=== PATIENT | male | born 1975 | race African-American/Black ===

== ENCOUNTER 2016-04-20 13:16 | Emergency (ER) | payer OTHER ==
[~2016-04-20] VITALS: Ht 177.8 cm; Wt 113.4 kg
[~2016-04-20 13:16] MED LIST: HYDROCHLOROTHIA25 M1 PO; PERCOCET 5-3251 EACH PO
--- NOTE | 2016-04-20 14:10 | ED GENERAL ADULT ---
History of Present Illness General Chief Complaint: General Adult Stated Complaint: ELAVATED BP Source: patient Exam Limitations: no limitations Vital Signs & Intake/Output Vital Signs & Intake/Output Vital Signs Date Time Temp Pulse Resp B/P Pulse O2 O2 Flow FiO2 Ox Delivery Rate 04/20 1653 160/80 04/20 1624 202/122 04/20 1600 99.0 103 20 198/116 04/20 1555 198/116 04/20 1516 103 20 200/110 97 Room Air 04/20 1436 99.0 97 20 198/122 04/20 1418 198/122 04/20 1324 99.0 97 20 196/135 97 Room Air Allergies Coded Allergies: ibuprofen (From MOTRIN) (Intermediate, HIVES 08/13/15) Reconcile Medications Albuterol Sulfate (Proair Hfa) 90 MCG HFA.AER.AD 2 PUF INH Q4-6 PRN PRN SHORTNESS OF BREATH (Reported) Ciprofloxacin HCl/Dexameth (Ciprodex Otic Suspension) 0.3 %-0.1 % DROPS.SUSP 4 GTT OT BID otitis externa use for 10 days Hydrochlorothiazide 25 MG TABLET 1 TAB PO DAILY BP (Reported) Labetalol HCl 100 MG TABLET 1 TAB PO BID hypertension Oxycodone HCl/Acetaminophen (Percocet 5-325 MG Tablet) 5 MG-325 MG TABLET 1 TAB PO Q6H PRN PAIN Triage Note: WENT TO WALK IN CLINIC FOR EAR INFECTION AND SENT HERE FOR BP OF 209/180. PT STATES + H/A. PT TAKES HCTZ FOR BP AND TOOK MED TODAY Triage Nurses Notes Reviewed? yes HPI: Patient is a 41 year old male presents for evaluation of elevated blood pressure. Patient was at an urgent care clinic for evaluation of right ear pain and they obtained a blood pressure of 209/180. Patient takes hydrochlorothiazide for his blood pressure, has been compliant with his medication regimen. Headache and ear pain since yesterday. Patient also noted drainage from his right ear over the past 24 hours. Patient took Benadryl yesterday evening to help him sleep with minimal improvement. Patient has not taken any medication for his pain. Headache and ear pain is currently severe. Patient denies blurred vision, chest pain, dyspnea nausea, vomiting, fevers, chills. (MICHAEL COHEN,ASHKAN) Past History Travel History Traveled to [place] past 21 day No Medical History Any Pertinent Medical History? see below for history Neurological: NONE EENT: NONE Cardiovascular: hypertension Respiratory: asthma Gastrointestinal: NONE Hepatic: NONE Renal: NONE Musculoskeletal: NECK LYPOMA Psychiatric: NONE Endocrine: NONE Surgical History Surgical History: non-contributory Psychosocial History What is your primary language Cambodian Tobacco Use: Current Daily Use Daily Tobacco Use Amount/Type: => 5 Cigarettes daily ETOH Use: occasional use Illicit Drug Use: denies illicit drug use Family History Hx Contributory? No (ASHKAN TYSON) Review of Systems Review of Systems Constitutional: Denies: chills, fever. EENTM: Reports: ear pain, nasal congestion. Denies: blurred vision, visual changes. Respiratory: Denies: cough, short of breath. Cardiovascular: Denies: chest pain, peripheral edema, syncope. GI: Denies: abdominal pain, nausea, vomiting. Genitourinary: Reports: no symptoms. Musculoskeletal: Reports: no symptoms. Skin: Reports: no symptoms. Neurological/Psychological: Reports: headache. Denies: numbness. Hematologic/Endocrine: Denies: bruising, bleeding. Immunologic/Allergic: Denies: splenectomy. (ASHKAN TYSON) Physical Exam Physical Exam General Appearance: well developed/nourished, alert, awake Head: atraumatic, normal appearance Eyes: Bilateral: normal appearance, PERRL, EOMI, other (grossly normal fundoscope exam ). Ears, Nose, Throat: inflammation of the right EAC. Right tragus tenderness Neck: normal inspection, supple, full range of motion Respiratory: normal breath sounds, chest non-tender, no respiratory distress, lungs clear Cardiovascular: regular rate/rhythm (no appreciable murmur) Gastrointestinal: soft, non-tender Back: normal inspection, normal range of motion Extremities: normal inspection, normal capillary refill, normal range of motion, no edema Neurologic/Psych: no motor/sensory deficits, awake, alert, oriented x 3, normal gait, radiosonde specialist II-XII nml as tested Skin: intact, normal color, warm/dry Lymphatic: no anterior cervical oriana Core Measures ACS in differential dx? Yes ASA ordered for poss ACS? No-ACS ruled out CVA/TIA Diagnosis: No Severe Sepsis Present: No Septic Shock Present: No (ASHKAN TYSON) Progress Differential Diagnoses I considered the following diagnoses in my evaluation of the patient: Sinusitis, otitis media, otitis externa, intracranial bleed, intracranial infection, hypertensive urgency, hypertensive crisis Plan of Care: Orders Procedure Date/time Status Telemetry/Warehouse Representative 04/20 1422 Active TROPONIN LEVEL 04/20 1422 Complete COMPREHENSIVE METABOLIC PANEL 04/20 1422 Complete CBC WITHOUT DIFFERENTIAL 04/20 1422 Complete EKG 04/20 140 Active Laboratory Tests 04/20/16 1425: Anion Gap 10, Estimated GFR > 60, BUN/Creatinine Ratio 7.5, Glucose 111 H, Calcium 9.2, Total Bilirubin 0.5, AST 24, ALT 39, Alkaline Phosphatase 90, Troponin I < 0.01, Total Protein 7.7, Albumin 4.2, Globulin 3.5, Albumin/ Globulin Ratio 1.2, CBC w Diff NO MAN DIFF REQ, RBC 5.78, MCV 78.8 L, MCH 26.2 L, RDW 13.9, MPV 7.6, Gran % 73.0, Lymphocytes % 20.7, Monocytes % 4.1, Eosinophils % 2.0, Basophils % 0.2, Absolute Granulocytes 8.9 H, Absolute Lymphocytes 2.5, Absolute Monocytes 0.5, Absolute Eosinophils 0.2, Absolute Basophils 0, PUBS MCHC 33.3 04/20/2016 4:28:20 PM: Patient's blood pressure did not significantly improve after amlodipine. IV labetalol ordered. Discussed with Dr. Talavera, EKG and labs reviewed: If blood pressure improves to less than 200/100 then can discharge home on additional PO medication. Blood pressure improving. No acute findings of end organ dysfunction on labs or exam. Appears stable for discharge with close outpatient follow up. (MICHAEL COHEN,ASHKAN) Diagnostic Imaging: Viewed by Me: CT Scan. Discussed w/RAD: CT Scan. Radiology Impression: PATIENT: KAYLAN VÁZQUEZ PRESENT AGE: 41 PATIENT ACCOUNT NO: [id number] : 76 LOCATION: [facility] ORDERING PHYSICIAN: ASHKAN COHEN SERVICE DATE: 04/20/16-1422 EXAM TYPE: CAT - CT HEAD WO IV CONTRAST EXAMINATION: CT HEAD WITHOUT CONTRAST CLINICAL INFORMATION: Headache, hypertension COMPARISON: None TECHNIQUE: Contiguous axial imaging was performed from the skull base to vertex without intravenous administration of contrast. DLP: 672 mGy-cm FINDINGS: There is no evidence of acute intracranial hemorrhage or territorial infarction. No abnormal mass effect or midline shift is seen. Paredes to white matter differentiation is well preserved. No extra-axial fluid collections are identified. The ventricles are normal in size. There is no abnormal attenuation within the brain parenchyma. The osseous structures and soft tissues are normal. Partial opacification of the right ethmoid sinuses. IMPRESSION: No acute intracranial pathology. Partial opacification of the right ethmoid sinus. DICTATED BY: ESTELLE BRAN MD DATE/TIME DICTATED:04/20/161516 BEAN WEIGHER:JANICE DATE/TIME TRANSCRIBED:04/20/161516 CONFIDENTIAL, DO NOT COPY WITHOUT APPROPRIATE AUTHORIZATION. <Electronically signed in Other Vendor System> SIGNED BY: ESTELLE BRAN MD 04/20/16 1523 Initial ED EKG: normal axis, normal intervals, normal p-waves, normal QRS complex, normal sinus rhythm, no ST T wave changes (ASHKAN TYSON) Departure Departure Time of Disposition: 1654 Disposition: HOME OR SELF CARE Condition: Stable Clinical Impression Primary Impression: Otitis externa Qualifiers: Otitis externa type: unspecified type Laterality: right Chronicity: acute Qualified Code: H60.501 - Unspecified acute noninfective otitis externa, right ear Secondary Impressions: Hypertension Qualifiers: Hypertension type: essential hypertension Qualified Code: I10 - Essential (primary) hypertension Referrals: SERGEY SHEEHAN,ANN MARIE Blair (PCP/Family) Additional Instructions: Follow up with your primary doctor this week for further evaluation. Call in the morning for appointment. Return to the emergency department if he developed chest pain, difficulty breathing, change in vision, numbness, weakness, or worsening of symptoms. Departure Forms: Customer Survey General Discharge Information Prescriptions: Current Visit Scripts Oxycodone HCl/Acetaminophen (Percocet 5-325 MG Tablet) 1 TAB PO Q6H PRN PAIN #10 TAB Ciprofloxacin HCl/Dexameth (Ciprodex Otic Suspension) 4 GTT OT BID #1 BOT use for 10 days Labetalol HCl 1 TAB PO BID #60 TAB (ASHKAN TYSON) PA/INDUSTRIAL RETROFIT DESIGNER Co-Sign Statement Statement: ED Attending supervision documentation- [] I saw and evaluated the patient. I have also reviewed all the pertinent lab results and diagnostic results. I agree with the findings and the plan of care as documented in the PA's/INDUSTRIAL RETROFIT DESIGNER's documentation. [x] I have reviewed the ED Record and agree with the PA's/INDUSTRIAL RETROFIT DESIGNER's documentation. [] Additions or exceptions (if any) to the PAs/INDUSTRIAL RETROFIT DESIGNER's note and plan are summarized below: [] (SHANA TALAVERA DO) Critical Care Note Critical Care Note Critical Care Time: non-applicable (MICHAEL COHEN,ASHKAN)
[2016-04-20] MEDS ORDERED: PROAIR HFA8.5 GM INH (14:33)
[2016-04-20 14:39] LABS: ABSOLUTE BASOPHIL COUNT 0 /CUMM (0.0-0.2); ABSOLUTE EOSINOPHIL COUNT 0.2 /CUMM (0.0-0.7); ABSOLUTE GRANULOCYTE CT 8.9 /CUMM (1.4-6.5); ABSOLUTE LYMPH COUNT 2.5 /CUMM (1.2-3.4); ABSOLUTE MONOCYTE COUNT 0.5 /CUMM (0.10-0.60); BASOPHIL % 0.2 % (0.0-2.0); HEMATOCRIT 45.6 % (42-52); MEAN CORPUSCULAR HGB 26.2 PG (27.0-31.0); MEAN CORPUSCULAR HGB CONC 33.3 G/DL (33.0-37.0); MEAN CORPUSCULAR VOLUME 78.8 FL (80.0-94.0); MEAN PLATELET VOLUME 7.6 FL (7.4-10.4); PLATELET COUNT 346 /CUMM (130-400); RBC DISTRIBUTION WIDTH 13.9 % (11.5-14.5); RED BLOOD CELL CT 5.78 /CUMM (4.70-6.10); WHITE BLOOD CELL COUNT 12.2 /CUMM (4.8-10.8)
--- NOTE | 2016-04-20 15:23 | CT SCAN REPORT ---
EXAMINATION: CT HEAD WITHOUT CONTRAST CLINICAL INFORMATION: Headache, hypertension COMPARISON: None TECHNIQUE: Contiguous axial imaging was performed from the skull base to vertex without intravenous administration of contrast. DLP: 672 mGy-cm FINDINGS: There is no evidence of acute intracranial hemorrhage or territorial infarction. No abnormal mass effect or midline shift is seen. Paredes to white matter differentiation is well preserved. No extra-axial fluid collections are identified. The ventricles are normal in size. There is no abnormal attenuation within the brain parenchyma. The osseous structures and soft tissues are normal. Partial opacification of the right ethmoid sinuses. IMPRESSION: No acute intracranial pathology. Partial opacification of the right ethmoid sinus.
[2016-04-20 16:53] VITALS: BP 160/80
[2016-04-20] MEDS ORDERED: CIPRODEX OTIC7.5 ML OT (16:56)
[2016-04-20] MEDS ORDERED: PERCOCET 5-3251 EACH PO (16:56)
[2016-04-20] MEDS ORDERED: LABETALOL HCL100 M1 PO (16:56)
== END 2016-04-20 17:02 ==
LOC: ERH 13:16
PROVIDERS: Physician Assistant
DX: H60.91 Unspecified otitis externa, right ear (principal); Z72.0 Tobacco use; I10 Essential (primary) hypertension; R51 Headache
CPT/HCPCS: 93005; 93010; 96374; 96375; 96376

== ENCOUNTER 2017-10-07 21:33 | Emergency (ER) | payer OTHER ==
[~2017-10-07] VITALS: Ht 177.8 cm; Wt 98.0 kg
[~2017-10-07 21:33] MED LIST changes: +CIPRODEX OTIC7.5 ML OT; +LABETALOL HCL100 M1 PO; +NORVASC10 M1 PO; +PROAIR HFA8.5 GM INH
[2017-10-07 22:42] LABS: ABSOLUTE BASOPHIL COUNT 0 /CUMM (0.0-0.2); ABSOLUTE EOSINOPHIL COUNT 0.4 /CUMM (0.0-0.7); ABSOLUTE GRANULOCYTE CT 5.1 /CUMM (1.4-6.5); ABSOLUTE LYMPH COUNT 2.7 /CUMM (1.2-3.4); ABSOLUTE MONOCYTE COUNT 0.5 /CUMM (0.10-0.60); BASOPHIL % 0.4 % (0.0-2.0); EOSINOPHIL % 4.2 % (0-5); GRANULOCYTE % 59.2 % (42.2-75.2); HEMATOCRIT 38.9 % (42-52); MEAN CORPUSCULAR HGB 26.9 PG (27.0-31.0); MEAN CORPUSCULAR HGB CONC 33.1 G/DL (33.0-37.0); MEAN CORPUSCULAR VOLUME 81.1 FL (80.0-94.0); MEAN PLATELET VOLUME 7.3 FL (7.4-10.4); PLATELET COUNT 362 /CUMM (130-400); RBC DISTRIBUTION WIDTH 15.2 % (11.5-14.5); WHITE BLOOD CELL COUNT 8.6 /CUMM (4.8-10.8)
[2017-10-07 23:30] VITALS: BP 135/75
--- NOTE | 2017-10-07 23:36 | RADIOLOGY REPORT ---
EXAMINATION: XR PORTABLE CHEST CLINICAL INFORMATION: Chest pain COMPARISON: 08/04/2017 TECHNIQUE: Portable frontal view of the chest was obtained. FINDINGS: The lungs are well expanded. There is no focal consolidation, edema, or effusion. No pneumothorax. The cardiomediastinal silhouette is within normal limits. No acute osseous abnormality. IMPRESSION: No acute pulmonary findings.
--- NOTE | 2017-10-08 00:01 | ED GENERAL ADULT ---
History of Present Illness General Chief Complaint: General Adult Stated Complaint: "PAIN UP AND DOWN LT ARM" Source: patient Exam Limitations: no limitations Vital Signs & Intake/Output Vital Signs & Intake/Output Vital Signs Date Time Temp Pulse Resp B/P B/P Pulse O2 O2 Flow FiO2 Mean Ox Delivery Rate 10/07 2330 98.1 88 18 135/75 98 Room Air 10/07 2301 Room Air 10/07 2144 96.8 88 20 155/103 98 Room Air ED Intake and Output 10/08 0000 10/07 1200 Intake Total Output Total Balance Patient 216 lb Weight Weight Reported by Patient Measurement Method Allergies Coded Allergies: ibuprofen (From MOTRIN) (Intermediate, HIVES 08/03/17) Reconcile Medications Albuterol Sulfate (Proair Hfa) 90 MCG HFA.AER.AD 2 PUF INH Q4-6 PRN PRN SHORTNESS OF BREATH (Reported) Amlodipine Besylate (Norvasc) 10 MG TABLET 1 TAB PO DAILY HIGH BLOOD PRESSURE Hydrochlorothiazide 25 MG TABLET 1 TAB PO DAILY BP Triage Note: PT HERE WITH C/O RIGHT ARM PAIN THAT BEGAN TODAY. PT DENIES TRAUMA TO AFFECTED AREA. PT REPORTS " IT FEELS CONSTRICTED". +CMS+PULSES TO AREA. Triage Nurses Notes Reviewed? yes Onset: Abrupt Duration: hour(s): (2) Timing: single episode today Injury Environment: home Severity: mild, moderate Severity Numbers: 5 No Modifying Factors: none Modifying Factors: Worsens With: movement. HPI: 42-year-old male history of hypertension presented for evaluation of pain in his right arm. Patient states 2 hours prior to arrival he developed pain located mostly in the the right bicep area. The pain started while he was at rest. He reports associated numbness and tingling in the right forearm. There is no trauma or triggering event is never had this before no chest pain or shortness of breath. Since the symptoms first started his pain has improved currently as a 5 out of 10. The pain is worse with movement or touching the area. No recent surgery recent IV access to that arm. No history of DVT. No sweats or chills nausea or vomiting. He is not taking any medicine for the pain. No swelling or redness no fever. (Augusto Salmon) Past History Travel History Traveled to [place] past 21 day No Medical History Any Pertinent Medical History? see below for history Neurological: NONE EENT: NONE Cardiovascular: hypertension Respiratory: asthma Gastrointestinal: NONE Hepatic: NONE Renal: NONE Musculoskeletal: NECK LYPOMA Psychiatric: NONE Endocrine: NONE Blood Disorders: NONE Cancer(s): NONE CRM CAMPAIGN MANAGER/Reproductive: NONE Surgical History Surgical History: non-contributory Psychosocial History What is your primary language Amharic Tobacco Use: Current Daily Use Daily Tobacco Use Amount/Type: => 5 Cigarettes daily ETOH Use: denies use Illicit Drug Use: denies illicit drug use Family History Hx Contributory? No (Augusto Salmon) Review of Systems Review of Systems Constitutional: Reports: no symptoms. EENTM: Reports: no symptoms. Respiratory: Reports: no symptoms. Cardiovascular: Reports: no symptoms. GI: Reports: no symptoms. Genitourinary: Reports: no symptoms. Musculoskeletal: Reports: joint pain, muscle pain, muscle stiffness. Skin: Reports: no symptoms. Neurological/Psychological: Reports: numbness, tingling. Hematologic/Endocrine: Reports: no symptoms. Immunologic/Allergic: Reports: no symptoms. All Other Systems: Reviewed and Negative (Augusto Salmon) Physical Exam Physical Exam General Appearance: well developed/nourished, no apparent distress, alert, awake Head: atraumatic, normal appearance Eyes: Bilateral: normal appearance, EOMI. Ears, Nose, Throat: hearing grossly normal Neck: normal inspection, supple, full range of motion Respiratory: normal breath sounds, chest non-tender, no respiratory distress, lungs clear Cardiovascular: regular rate/rhythm, normal peripheral pulses Peripheral Pulses: 2+ brachial (R), 2+ brachial (L), 2+ radial (R), 2+ radial (L) Gastrointestinal: soft, non-tender Back: normal inspection, normal range of motion Extremities: normal inspection, normal range of motion, no edema, Scalp laceration there is a 1 cm linear superficial laceration, abrasion there is mild tenderness to palpation in the area of the right bicep. No bruising swelling or abrasions. No erythema. Brachial and radial pulses 2+ Neurologic/Psych: no motor/sensory deficits, awake, alert, oriented x 3, normal gait, normal mood/affect Skin: intact, normal color, warm/dry Lymphatic: no anterior cervical oriana Core Measures ACS in differential dx? No CVA/TIA Diagnosis: No Sepsis Present: No Sepsis Focused Exam Completed? No (Augusto Salmon) Progress Differential Diagnoses I considered the following diagnoses in my evaluation of the patient: [Muscle strain, tendinitis, tendon rupture, acute coronary syndrome, cubital tunnel syndrome, carpal tunnel syndrome, brachial plexus injury, cervical radiculopathy , dvt] Plan of Care: Orders Procedure Date/time Status TROPONIN LEVEL 10/07 2224 Complete COMPREHENSIVE METABOLIC PANEL 10/07 2224 Complete CBC WITHOUT DIFFERENTIAL 10/07 2224 Complete EKG 10/07 2145 Active Laboratory Tests 10/07/172231: Anion Gap 6, Estimated GFR > 60, BUN/Creatinine Ratio 10.0, Glucose 107 H, Calcium 9.1, Total Bilirubin 0.3, AST 24, ALT 41, Alkaline Phosphatase 80, Troponin I < 0.01, Total Protein 7.0, Albumin 3.7, Globulin 3.3, Albumin/ Globulin Ratio 1.1, CBC w Diff NO MAN DIFF REQ, RBC 4.80, MCV 81.1, MCH 26.9 L, MCHC 33.1, RDW 15.2 H, MPV 7.3 L, Gran % 59.2, Lymphocytes % 30.9, Monocytes % 5.3, Eosinophils % 4.2, Basophils % 0.4, Absolute Granulocytes 5.1, Absolute Lymphocytes 2.7, Absolute Monocytes 0.5, Absolute Eosinophils 0.4, Absolute Basophils 0 Patient is here for evaluation of acute onset pain to his right bicep area. On exam there is no gross deformity bruising swelling abrasions or erythema. Neurovascular supplies intact. There was no trauma or triggering events. He has no chest pain or shortness of breath. The pain is improved since first starting. Patient is hypertensive. Labs EKG chest x-ray ordered. Patient walked out of the emergency department before his evaluation was complete. IT Is unclear why he did this. Patient was alert and oriented 3. Blood work chest x-ray was unremarkable. Attempted to call patient multiple times but he did not answer. Diagnostic Imaging: Viewed by Me: Radiology Read. Discussed w/RAD: Radiology Read. Radiology Impression: PATIENT: KAYLAN VÁZQUEZ PRESENT AGE: 42 PATIENT ACCOUNT NO: [id number] : 76 LOCATION: [facility] ORDERING PHYSICIAN: Augusto COHEN SERVICE DATE: 10/07/17 EXAM TYPE: RAD - XRY- PORTABLE CHEST XRAY EXAMINATION: XR PORTABLE CHEST CLINICAL INFORMATION: Chest pain COMPARISON: 08/04/2017 TECHNIQUE: Portable frontal view of the chest was obtained. FINDINGS: The lungs are well expanded. There is no focal consolidation , edema, or effusion. No pneumothorax. The cardiomediastinal silhouette is within normal limits. No acute osseous abnormality. IMPRESSION: No acute pulmonary findings. DICTATED BY: Stevie Nicole MD DATE/TIME DICTATED:2331 HAT DESIGNER:JANICE DATE/TIME TRANSCRIBED:10/07/172331 CONFIDENTIAL, DO NOT COPY WITHOUT APPROPRIATE AUTHORIZATION. <Electronically signed in Other Vendor System> SIGNED BY: Bonnie SHEEHAN,Stevie 10/07/172335 Initial ED EKG: normal sinus rhythm, nonspecific ST T wave chg (Augusto Salmon) Departure Departure Disposition: LEFT AGAINST MEDICAL ADVICE Condition: Stable Clinical Impression Primary Impression: Right arm pain Referrals: Abbey SHEEHAN,Gloria Blair (PCP/Family) Departure Forms: Customer Survey General Discharge Information (Augusto Salmon) PA/OPERATIONAL ASSISTANT Co-Sign Statement Statement: ED Attending supervision documentation- I saw and evaluated the patient. I have also reviewed all the pertinent lab results and diagnostic results. I agree with the findings and the plan of care as documented in the PA's/OPERATIONAL ASSISTANT's documentation. x I have reviewed the ED Record and agree with the PA's/OPERATIONAL ASSISTANT's documentation. [] Additions or exceptions (if any) to the PAs/OPERATIONAL ASSISTANT's note and plan are summarized below: [] (Praveen SHEEHAN,[employer]) Critical Care Note Critical Care Note Critical Care Time: non-applicable (Augusto Salmon)
== END 2017-10-07 23:47 | disposition left against medical advice (07) ==
LOC: ERH 21:33
PROVIDERS: Physician Assistant Medical
DX: M79.601 Pain in right arm (principal)
CPT/HCPCS: 71045; 93005; 93010